=== PATIENT | male | born 1980 | race Caucasian/White ===

== ENCOUNTER 2016-11-09 22:53 | Emergency (ER) | payer SELFPAY ==
[~2016-11-09] VITALS: Ht 177.8 cm; Wt 56.0 kg
[~2016-11-09 22:53] MED LIST: LORTA5 PO; ROBA750T3 PO; TRAM50 PO
[2016-11-09 22:54] VITALS: BP 128/75; PULSE 81; RESP 18; TEMP 100.8; O2SAT 96
== END 2016-11-10 00:45 | disposition left against medical advice (07) ==
LOC: NED 22:53
DX: K08.89 Other specified disorders of teeth and supporting structures (principal); Z53.21 Procedure and treatment not carried out due to patient leaving prior to being seen by health care provider
CPT/HCPCS: 99281